=== PATIENT | female | born 1945 | race Caucasian/White ===

== ENCOUNTER 2023-06-21 20:18 | Inpatient (IN) | payer BC, MEDICARE ==
[~2023-06-21] VITALS: Ht 142.2 cm; Wt 55.8 kg
[2023-06-21] MEDS ORDERED: FENTANYL CITRATE 100 MCG/2 ML AMPUL IV ONE (20:30)
[2023-06-21] MEDS ORDERED: FENTANYL CITRATE 100 MCG/2 ML AMPUL ONE (20:32)
[2023-06-21] MEDS ORDERED: ONDANSETRON 4 MG/2 ML VIAL IV ONE (21:30)
[2023-06-21] MEDS ORDERED: HYDROMORPHONE 1 MG/1 ML DISP.SYRIN IV ONE ×2 (21:30→23:00)
[2023-06-21] MEDS ORDERED: ONDANSETRON 4 MG/2 ML VIAL ONE (21:32)
[2023-06-21] MEDS ORDERED: HYDROMORPHONE 1 MG/1 ML DISP.SYRIN ONE ×2 (21:32→22:56)
[2023-06-21 21:33] LABS: BASOPHILS % (AUTO) 0.1 % (0.0-2.0); EOSINOPHILS # (AUTO) 1.6 K/uL (0.0-0.7); EOSINOPHILS % (AUTO) 9.1 % (0.0-7.0); HEMATOCRIT 40.1 % (31.2-41.9); LYMPHOCYTES # (AUTO) 0.6 K/uL (0.8-4.8); LYMPHOCYTES % (AUTO) 3.6 % (20.5-51.5); MEAN CORPUSCULAR HEMOGLOBIN 31.2 uug (24.7-32.8); MEAN CORPUSCULAR HGB CONC 33 g/dL (32.3-35.6); MEAN CORPUSCULAR VOLUME 95.9 fL (75.5-95.3); MONOCYTES # (AUTO) 0.4 K/uL (0.1-1.30); MONOCYTES % (AUTO) 2.5 % (0.0-11.0); NEUTROPHILS % (AUTO) 84.7 % (38.5-71.5); PLATELET COUNT (AUTO) 273 K/uL (179-408); RED BLOOD CELL COUNT(AUTO) 4.18 MIL/uL (3.63-4.92); RED CELL DISTRIBUTION WIDTH 13.9 % (12.3-17.7); WHITE BLOOD COUNT (AUTO) 17.7 K/uL (3.8-11.8)
[2023-06-21 22:06] LABS: DIFFERENTIAL COMMENT 1
[2023-06-21 22:12] LABS: CALCIUM 9.2 mg/dL (8.5-10.1); CARBON DIOXIDE 22 mmol/L (21-32); CHLORIDE 101 mmol/L (98-107); CREATININE 0.8 mg/dL (0.6-1.3); GLUCOSE 124 mg/dL (74-106); POTASSIUM 3.5 mmol/L (3.5-5.1); SODIUM SERUM 136 mmol/L (136-145); UREA NITROGEN, BLOOD 11 mg/dL (7-18)
[2023-06-21 22:28] LABS: ALANINE AMINOTRANSFERASE 32 U/L (14-59); ALBUMIN 3.6 g/dL (3.4-5.0); ALKALINE PHOSPHATASE 47 U/L (50-136); ASPARTATE AMINOTRANSFERASE 24 U/L (15-37); BILIRUBIN,TOTAL 0.2 mg/dL (0.2-1.0); NT-PRO BNP 30 pg/mL (0-125); TOTAL PROTEIN, SERUM 7.1 g/dL (6.4-8.2)
[2023-06-21 22:33] LABS: BILIRUBIN,DIRECT < 0.1 mg/dL (0.0-0.2)
[2023-06-21] MEDS ORDERED: REMEDY ESSENTIAL ZINC PASTE 113 GM TP PRN (22:45)
[2023-06-21] MEDS ORDERED: ACETAMINOPHEN 325 MG TABLET PO PRN (22:45)
[2023-06-21] MEDS ORDERED: MAGNESIUM HYDROXIDE 30 ML LIQUID UDC PO PRN (22:45)
[2023-06-21] MEDS: ONDANSETRON 4 MG/2 ML VIAL IV PRN (23:06)
[2023-06-21] MEDS ORDERED: FOLI1TAB2 PO (23:35)
[2023-06-21] MEDS ORDERED: PROP15DR EACHEYE (23:35)
[2023-06-21] MEDS ORDERED: METF-494 PO (23:35)
[2023-06-21] MEDS ORDERED: MAGN400C PO (23:35)
[2023-06-21] MEDS ORDERED: ROSU20TA2 PO (23:35)
[2023-06-21] MEDS ORDERED: BIOT5000 PO (23:35)
[2023-06-21] MEDS ORDERED: VIT1CAPS44 PO (23:35)
[2023-06-21] MEDS ORDERED: CHOL500050 PO (23:35)
[2023-06-21] MEDS ORDERED: ASCO500C18 PO (23:35)
[2023-06-22] MEDS: MORPHINE SULFATE 2 MG/1 ML DISP.SYRIN IV PRN ×5 (01:09→21:34)
[2023-06-22 04:00] VITALS: BP 124/71; TEMP 98.2
[2023-06-22 07:14] LABS: BASOPHILS % (AUTO) 0.3 % (0.0-2.0); EOSINOPHILS % (AUTO) 0.3 % (0.0-7.0); HEMATOCRIT 36.5 % (31.2-41.9); HEMOGLOBIN 12.4 g/dL (10.9-14.3); LYMPHOCYTES # (AUTO) 1.3 K/uL (0.8-4.8); LYMPHOCYTES % (AUTO) 11.8 % (20.5-51.5); MEAN CORPUSCULAR HEMOGLOBIN 32.2 uug (24.7-32.8); MEAN CORPUSCULAR HGB CONC 34 g/dL (32.3-35.6); MONOCYTES # (AUTO) 1.1 K/uL (0.1-1.30); MONOCYTES % (AUTO) 9.8 % (0.0-11.0); NEUTROPHILS # (AUTO) 8.8 K/uL (1.8-8.9); NEUTROPHILS % (AUTO) 77.8 % (38.5-71.5); PLATELET COUNT (AUTO) 260 K/uL (179-408); RED BLOOD CELL COUNT(AUTO) 3.84 MIL/uL (3.63-4.92); RED CELL DISTRIBUTION WIDTH 13.9 % (12.3-17.7); WHITE BLOOD COUNT (AUTO) 11.3 K/uL (3.8-11.8)
[2023-06-22 07:26] LABS: DIFFERENTIAL COMMENT 1
[2023-06-22 07:34] LABS: CALCIUM 8.6 mg/dL (8.5-10.1); CARBON DIOXIDE 27 mmol/L (21-32); CHLORIDE 101 mmol/L (98-107); CREATININE 0.6 mg/dL (0.6-1.3); GLUCOSE 126 mg/dL (74-106); MAGNESIUM 2.1 mg/dL (1.8-2.4); PHOSPHOROUS 3.6 mg/dL (2.5-4.9); POTASSIUM 4.6 mmol/L (3.5-5.1); SODIUM SERUM 134 mmol/L (136-145); UREA NITROGEN, BLOOD 9 mg/dL (7-18)
[2023-06-22 08:00] VITALS: BP 139/76; TEMP 98.1; O2SAT 96
[2023-06-22] MEDS ORDERED: Medication Not On Formulary EA (Rosuvastatin Calcium (Crestor) 1 TAB) PO SCH (09:00)
[2023-06-22] MEDS ORDERED: Medication Not On Formulary EA (Metformin Hcl (Metformin Hcl Er) 1 TAB) PO SCH (09:00)
[2023-06-22 09:40] LABS: THYROID STIMULATING HORMONE 3.582 mIU/mL (0.358-3.740)
[2023-06-22] MEDS: METFORMIN XR 500 MG TAB.SR.24H PO SCH (09:44)
[2023-06-22 10:05] VITALS: BP 142/75; TEMP 98; O2SAT 98
[2023-06-22] MEDS: HYDROCODONE/APAP 10-325 MG TABLET PO PRN ×3 (11:16→23:44)
[2023-06-22 14:11] LABS: *BILIRUBIN,URIN NEGATIVE (NEGATIVE); *CLARITY,URINE CLEAR (CLEAR); *COLOR,URINE YELLOW (YELLOW); *KETONES,URINE TRACE (NEGATIVE); *PROTEIN,URINE NEGATIVE (NEGATIVE); *UROBILINOGEN,URINE 0.2 E.U./dl (NORMAL); LEUKOCYTE ESTERASE ,URINE 1+ (NEGATIVE); NITRITE, URINE NEGATIVE (NEGATIVE); UGLUCOSE NEGATIVE (NEGATIVE)
[2023-06-22 14:13] LABS: *BLOOD, URINE TRACE (NEGATIVE)
[2023-06-22 15:30] LABS: BACTERIA,URINE MODERATE /HPF (NONE SEEN); SQUAMOUS EPITHELIAL CELL,UR MANY /HPF (NONE SEEN); WBC,URINE 20-50 /HPF (0-3)
[2023-06-22] MEDS: CEFTRIAXONE 1 G in IV DEXTROSE 5% 50 ML IV SCH (17:17)
[2023-06-22] MEDS: ONDANSETRON 4 MG/2 ML VIAL IV PRN (17:21)
[2023-06-22 20:00] VITALS: BP 130/81; TEMP 98.1; O2SAT 94
[2023-06-22] MEDS: ATORVASTATIN 40 MG TABLET PO SCH (20:53)
[2023-06-23] VITALS: BP 135/82; TEMP 98; O2SAT 97
[2023-06-23 04:00] VITALS: BP 126/78; TEMP 98.4; O2SAT 95
[2023-06-23] MEDS: MORPHINE SULFATE 2 MG/1 ML DISP.SYRIN IV PRN ×2 (06:26→13:45)
[2023-06-23] MEDS ORDERED: CEFAZOLIN 1 G VIAL ONE (07:00)
[2023-06-23] MEDS ORDERED: LIDOCAINE-MPF 2% 5 ML VIAL ONE (07:00)
[2023-06-23] MEDS ORDERED: KETOROLAC TROMETHAMINE 30 MG INJ ONE (07:00)
[2023-06-23] MEDS ORDERED: PROPOFOL 200 MG/20 ML BOTTLE ONE (07:00)
[2023-06-23] MEDS ORDERED: VANCOMYCIN 1000 MG VIAL ONE (07:26)
[2023-06-23] MEDS: METFORMIN XR 500 MG TAB.SR.24H PO SCH (09:00)
[2023-06-23] MEDS ORDERED: FENTANYL CITRATE 100 MCG/2 ML AMPUL ONE (09:32)
[2023-06-23] MEDS ORDERED: IV D5W-0.45% NS +20 KCL 1,000 ML IV ONE (09:39)
[2023-06-23] MEDS ORDERED: MORPHINE SULFATE 4 MG/1 ML DISP.SYRIN IV PRN (10:00)
[2023-06-23] MEDS ORDERED: IV D5W-0.45% NS +20 KCL 1,000 ML IV PRN (10:00)
[2023-06-23] MEDS: ONDANSETRON 4 MG/2 ML VIAL IV PRN ×2 (11:27→17:30)
[2023-06-23 12:00] VITALS: BP 114/68; TEMP 97.4; O2SAT 97
[2023-06-23 16:00] VITALS: BP 108/59; TEMP 98.3; O2SAT 94
[2023-06-23] MEDS: CEFTRIAXONE 1 G in IV DEXTROSE 5% 50 ML IV SCH (17:09)
[2023-06-23] MEDS: HYDROCODONE/APAP 10-325 MG TABLET PO PRN ×2 (17:10→23:18)
[2023-06-23] MEDS: ATORVASTATIN 40 MG TABLET PO SCH (21:00)
[2023-06-23 23:45] VITALS: BP 106/60; TEMP 98; O2SAT 98
[2023-06-24 02:51] VITALS: BP 116/61; TEMP 98.1; O2SAT 95
[2023-06-24] MEDS: HYDROCODONE/APAP 10-325 MG TABLET PO PRN ×4 (03:21→20:38)
[2023-06-24 07:15] LABS: BASOPHILS % (AUTO) 0.5 % (0.0-2.0); EOSINOPHILS # (AUTO) 0.1 K/uL (0.0-0.7); EOSINOPHILS % (AUTO) 1.6 % (0.0-7.0); HEMATOCRIT 26.7 % (31.2-41.9); HEMOGLOBIN 9.2 g/dL (10.9-14.3); LYMPHOCYTES # (AUTO) 1.4 K/uL (0.8-4.8); LYMPHOCYTES % (AUTO) 19.8 % (20.5-51.5); MEAN CORPUSCULAR HEMOGLOBIN 32.6 uug (24.7-32.8); MEAN CORPUSCULAR HGB CONC 34 g/dL (32.3-35.6); MEAN CORPUSCULAR VOLUME 94.9 fL (75.5-95.3); MONOCYTES # (AUTO) 0.8 K/uL (0.1-1.30); MONOCYTES % (AUTO) 11.2 % (0.0-11.0); NEUTROPHILS # (AUTO) 4.7 K/uL (1.8-8.9); NEUTROPHILS % (AUTO) 66.9 % (38.5-71.5); PLATELET COUNT (AUTO) 190 K/uL (179-408); RED BLOOD CELL COUNT(AUTO) 2.82 MIL/uL (3.63-4.92); RED CELL DISTRIBUTION WIDTH 13.6 % (12.3-17.7); WHITE BLOOD COUNT (AUTO) 7.1 K/uL (3.8-11.8)
[2023-06-24 07:22] LABS: CALCIUM 7.2 mg/dL (8.5-10.1); CARBON DIOXIDE 26 mmol/L (21-32); CHLORIDE 100 mmol/L (98-107); CREATININE 0.5 mg/dL (0.6-1.3); GLUCOSE 146 mg/dL (74-106); MAGNESIUM 2.1 mg/dL (1.8-2.4); PHOSPHOROUS 1.9 mg/dL (2.5-4.9); POTASSIUM 4.1 mmol/L (3.5-5.1); SODIUM SERUM 129 mmol/L (136-145); UREA NITROGEN, BLOOD 11 mg/dL (7-18)
[2023-06-24 07:43] LABS: DIFFERENTIAL COMMENT 1
[2023-06-24 08:00] VITALS: BP 107/58; TEMP 98.1; O2SAT 95
[2023-06-24] MEDS: ONDANSETRON 4 MG/2 ML VIAL IV PRN (08:44)
[2023-06-24] MEDS: METFORMIN XR 500 MG TAB.SR.24H PO SCH (08:44)
[2023-06-24 12:00] VITALS: BP 133/64; TEMP 98; O2SAT 97
[2023-06-24] MEDS: MORPHINE SULFATE 2 MG/1 ML DISP.SYRIN IV PRN ×2 (12:26→23:49)
[2023-06-24] MEDS ORDERED: IV NS 1000 ML 1,000 ML IV ONE (13:50)
[2023-06-24] MEDS ORDERED: NEUTRA PHOS PACKET PO ONE (15:45)
[2023-06-24 16:09] VITALS: BP 129/73; TEMP 97.8; O2SAT 99
[2023-06-24] MEDS: CEFTRIAXONE 1 G in IV DEXTROSE 5% 50 ML IV SCH (16:36)
[2023-06-24 20:15] VITALS: BP 126/68; TEMP 99.7; O2SAT 98
[2023-06-24] MEDS: ATORVASTATIN 40 MG TABLET PO SCH (20:37)
[2023-06-24 23:45] VITALS: BP 121/68; TEMP 98.8; O2SAT 96
[2023-06-25 03:28] VITALS: BP 112/66; TEMP 99.2; O2SAT 96
[2023-06-25] MEDS: HYDROCODONE/APAP 10-325 MG TABLET PO PRN ×3 (03:50→14:38)
[2023-06-25 06:42] VITALS: BP 118/68
[2023-06-25 07:01] LABS: BASOPHILS # (AUTO) 0.1 K/UL (0.0-0.2); BASOPHILS % (AUTO) 0.6 % (0.0-2.0); EOSINOPHILS # (AUTO) 0.2 K/uL (0.0-0.7); EOSINOPHILS % (AUTO) 2.2 % (0.0-7.0); HEMOGLOBIN 8.8 g/dL (10.9-14.3); LYMPHOCYTES % (AUTO) 12.8 % (20.5-51.5); MEAN CORPUSCULAR HGB CONC 34 g/dL (32.3-35.6); MEAN CORPUSCULAR VOLUME 94.9 fL (75.5-95.3); NEUTROPHILS # (AUTO) 5.8 K/uL (1.8-8.9); NEUTROPHILS % (AUTO) 72.4 % (38.5-71.5); PLATELET COUNT (AUTO) 192 K/uL (179-408); RED BLOOD CELL COUNT(AUTO) 2.74 MIL/uL (3.63-4.92); RED CELL DISTRIBUTION WIDTH 13.9 % (12.3-17.7)
[2023-06-25 07:15] LABS: CALCIUM 7.2 mg/dL (8.5-10.1); CARBON DIOXIDE 24 mmol/L (21-32); CHLORIDE 104 mmol/L (98-107); CREATININE 0.4 mg/dL (0.6-1.3); GLUCOSE 128 mg/dL (74-106); MAGNESIUM 2.2 mg/dL (1.8-2.4); PHOSPHOROUS 1.7 mg/dL (2.5-4.9); POTASSIUM 4.1 mmol/L (3.5-5.1); SODIUM SERUM 133 mmol/L (136-145); UREA NITROGEN, BLOOD 6 mg/dL (7-18)
[2023-06-25 07:38] LABS: DIFFERENTIAL COMMENT 1
[2023-06-25 08:00] VITALS: BP 110/68; TEMP 98.1
[2023-06-25] MEDS: METFORMIN XR 500 MG TAB.SR.24H PO SCH (09:28)
[2023-06-25 11:30] VITALS: BP 131/71; TEMP 97.4; O2SAT 98
[2023-06-25] MEDS ORDERED: NEUTRA PHOS PACKET PO ONE (16:00)
[2023-06-25] MEDS ORDERED: ATOR40TA PO (16:48)
[2023-06-26] MEDS ORDERED: CHOL-35 PO (11:31)
== END 2023-06-25 16:09 | DRG 481 ==
LOC: ER 20:21 → MEDSURG3 22:50
PROVIDERS: ADMIT Nurse Practitioner Acute Care; ATTEND Internal Medicine
PROC: 0QS606Z Reposition Right Upper Femur with Intramedullary Internal Fixation Device, Open Approach (ICD-10-PCS; principal; 2023-06-23)
PROC: 0QS606Z Reposition Right Upper Femur with Intramedullary Internal Fixation Device, Open Approach (ICD-10-PCS; 2023-06-23)
DX: S72.21XA Displaced subtrochanteric fracture of right femur, initial encounter for closed fracture (principal); D62 Acute posthemorrhagic anemia; D68.59 Other primary thrombophilia; N39.0 Urinary tract infection, site not specified; E87.1 Hypo-osmolality and hyponatremia; W01.0XXA Fall on same level from slipping, tripping and stumbling without subsequent striking against object, initial encounter; Y93.E9 Activity, other interior property and clothing maintenance; Y92.89 Other specified places as the place of occurrence of the external cause; E11.9 Type 2 diabetes mellitus without complications; Z85.3 Personal history of malignant neoplasm of breast; Z90.12 Acquired absence of left breast and nipple; K64.9 Unspecified hemorrhoids; I25.10 Atherosclerotic heart disease of native coronary artery without angina pectoris; I10 Essential (primary) hypertension; E66.3 Overweight; K59.00 Constipation, unspecified; Z79.84 Long term (current) use of oral hypoglycemic drugs; M19.90 Unspecified osteoarthritis, unspecified site; R05.9 Cough, unspecified; R09.89 Other specified symptoms and signs involving the circulatory and respiratory systems; E78.5 Hyperlipidemia, unspecified
CPT/HCPCS: 36415; 71045; 73502; 73503; 73551; 83735; 84100; 84443; 84484; 85025; 85730; 86850; 86900; 86901; 93005; 93307; A4649; A4663; C1713; G0378; J0690; J0696; J1170; J1885; J2270; J2405; J3010; J3370; J3490; J7040

== ENCOUNTER 2023-06-25 15:37 | Inpatient (IN) | payer MEDICARE ==
[~2023-06-25] VITALS: Ht 167.6 cm; Wt 55.8 kg
[~2023-06-25 15:37] MED LIST: ASCO500C18 PO; BIOT5000 PO; CHOL500050 PO; FOLI1TAB2 PO; MAGN400C PO; METF-494 PO; PROP15DR EACHEYE; ROSU20TA2 PO; VIT1CAPS44 PO
[2023-06-25] MEDS ORDERED: ATOR40TA PO (16:48)
[2023-06-25 16:50] VITALS: BP 112/63; TEMP 98.3; O2SAT 98
[2023-06-25] MEDS: HYDROCODONE/APAP 10-325 MG TABLET PO PRN ×2 (18:27→23:03)
[2023-06-25] MEDS ORDERED: MORPHINE SULFATE 2 MG/1 ML DISP.SYRIN IV PRN (18:30)
[2023-06-25] MEDS ORDERED: MAGNESIUM HYDROXIDE 30 ML LIQUID UDC PO PRN (18:45)
[2023-06-25] MEDS ORDERED: ACETAMINOPHEN 325 MG TABLET PO PRN (18:45)
[2023-06-25] MEDS ORDERED: REMEDY ESSENTIAL ZINC PASTE 113 GM TP PRN (18:45)
[2023-06-25 20:23] VITALS: BP 112/66; TEMP 98.8; O2SAT 96
[2023-06-25] MEDS: ATORVASTATIN 40 MG TABLET PO SCH (20:54)
[2023-06-26 04:42] VITALS: BP 111/72; TEMP 98.6; O2SAT 96
[2023-06-26] MEDS: HYDROCODONE/APAP 10-325 MG TABLET PO PRN ×4 (06:42→20:45)
[2023-06-26 06:51] LABS: BASOPHILS % (AUTO) 0.6 % (0.0-2.0); EOSINOPHILS # (AUTO) 0.3 K/uL (0.0-0.7); EOSINOPHILS % (AUTO) 3.6 % (0.0-7.0); HEMATOCRIT 24.8 % (31.2-41.9); HEMOGLOBIN 8.6 g/dL (10.9-14.3); LYMPHOCYTES # (AUTO) 1.6 K/uL (0.8-4.8); LYMPHOCYTES % (AUTO) 23.4 % (20.5-51.5); MEAN CORPUSCULAR HEMOGLOBIN 32.7 uug (24.7-32.8); MEAN CORPUSCULAR HGB CONC 35 g/dL (32.3-35.6); MEAN CORPUSCULAR VOLUME 94.6 fL (75.5-95.3); MONOCYTES # (AUTO) 0.8 K/uL (0.1-1.30); NEUTROPHILS # (AUTO) 4.2 K/uL (1.8-8.9); NEUTROPHILS % (AUTO) 60.4 % (38.5-71.5); PLATELET COUNT (AUTO) 225 K/uL (179-408); RED BLOOD CELL COUNT(AUTO) 2.62 MIL/uL (3.63-4.92); RED CELL DISTRIBUTION WIDTH 13.7 % (12.3-17.7); WHITE BLOOD COUNT (AUTO) 6.9 K/uL (3.8-11.8)
[2023-06-26 07:11] LABS: DIFFERENTIAL COMMENT 1
[2023-06-26 07:42] LABS: CALCIUM 7.5 mg/dL (8.5-10.1); CARBON DIOXIDE 26 mmol/L (21-32); CHLORIDE 104 mmol/L (98-107); CREATININE 0.4 mg/dL (0.6-1.3); GLUCOSE 112 mg/dL (74-106); HDL CHOLESTEROL 43 mg/dL (40-60); MAGNESIUM 2.1 mg/dL (1.8-2.4); POTASSIUM 4.5 mmol/L (3.5-5.1); SODIUM SERUM 136 mmol/L (136-145); TRIGLYCERIDES 72 MG/DL (30-150); UREA NITROGEN, BLOOD 8 mg/dL (7-18)
[2023-06-26 07:45] VITALS: BP 124/72; TEMP 98.2; O2SAT 96
[2023-06-26 08:02] LABS: CHOLESTEROL < 50 mg/dL (<200)
[2023-06-26] MEDS: METFORMIN XR 500 MG TAB.SR.24H PO SCH (08:52)
[2023-06-26] MEDS ORDERED: Medication Not On Formulary EA (Metformin Hcl (Metformin Hcl Er) 1 TAB) PO SCH (09:00)
[2023-06-26] MEDS ORDERED: CHOL-35 PO (11:31)
[2023-06-26] MEDS: ONDANSETRON 4 MG/2 ML VIAL IV PRN ×2 (12:48→21:18)
[2023-06-26] MEDS ORDERED: NEUTRA PHOS PACKET PO ONE (16:00)
[2023-06-26 16:45] VITALS: BP 135/76; TEMP 98.2; O2SAT 95
[2023-06-26] MEDS: POLYVINYL ALCOHOL OPHT DROPS 15 ML BOTTLE EACHEYE SCH (16:49)
[2023-06-26] MEDS: ATORVASTATIN 40 MG TABLET PO SCH (20:45)
[2023-06-26 20:54] VITALS: BP 145/76; TEMP 98.4; O2SAT 99
[2023-06-27 04:25] VITALS: BP 126/72; TEMP 98.5; O2SAT 97
[2023-06-27] MEDS: HYDROCODONE/APAP 10-325 MG TABLET PO PRN ×5 (05:37→19:54)
[2023-06-27 07:53] VITALS: BP 112/71; TEMP 98.5; O2SAT 97
[2023-06-27] MEDS: CHOLECALCIFEROL 1,000 UNIT TABLET PO SCH (09:21)
[2023-06-27] MEDS: MAGNESIUM OXIDE 400 MG TABLET PO SCH (09:21)
[2023-06-27] MEDS: METFORMIN XR 500 MG TAB.SR.24H PO SCH (09:21)
[2023-06-27] MEDS: POLYVINYL ALCOHOL OPHT DROPS 15 ML BOTTLE EACHEYE SCH ×2 (09:21→17:00)
[2023-06-27] MEDS ORDERED: BISACODYL 10 MG SUPP.RECT RC ONE (13:15)
[2023-06-27] MEDS: ATORVASTATIN 40 MG TABLET PO SCH (20:33)
[2023-06-27 21:34] VITALS: BP 130/71; TEMP 98.4; O2SAT 99
[2023-06-28 05:39] VITALS: BP 135/56; TEMP 98.4; O2SAT 96
[2023-06-28] MEDS: ACETAMINOPHEN 325 MG TABLET PO PRN (06:32)
[2023-06-28 06:37] LABS: BASOPHILS % (AUTO) 0.5 % (0.0-2.0); EOSINOPHILS # (AUTO) 0.2 K/uL (0.0-0.7); EOSINOPHILS % (AUTO) 2.7 % (0.0-7.0); HEMATOCRIT 27.7 % (31.2-41.9); HEMOGLOBIN 9.6 g/dL (10.9-14.3); LYMPHOCYTES # (AUTO) 1.6 K/uL (0.8-4.8); LYMPHOCYTES % (AUTO) 17.6 % (20.5-51.5); MEAN CORPUSCULAR HEMOGLOBIN 32.6 uug (24.7-32.8); MEAN CORPUSCULAR HGB CONC 35 g/dL (32.3-35.6); MEAN CORPUSCULAR VOLUME 94.2 fL (75.5-95.3); MONOCYTES # (AUTO) 1.1 K/uL (0.1-1.30); MONOCYTES % (AUTO) 11.7 % (0.0-11.0); NEUTROPHILS # (AUTO) 6.1 K/uL (1.8-8.9); NEUTROPHILS % (AUTO) 67.5 % (38.5-71.5); PLATELET COUNT (AUTO) 343 K/uL (179-408); RED BLOOD CELL COUNT(AUTO) 2.94 MIL/uL (3.63-4.92); RED CELL DISTRIBUTION WIDTH 13.7 % (12.3-17.7)
[2023-06-28 06:53] LABS: DIFFERENTIAL COMMENT 1
[2023-06-28 07:32] LABS: ALBUMIN 2.3 g/dL (3.4-5.0); BILIRUBIN,TOTAL 0.4 mg/dL (0.2-1.0); CALCIUM 8.4 mg/dL (8.5-10.1); CREATININE 0.6 mg/dL (0.6-1.3); MAGNESIUM 2.1 mg/dL (1.8-2.4); PHOSPHOROUS 2.7 mg/dL (2.5-4.9); POTASSIUM 4.3 mmol/L (3.5-5.1); TOTAL PROTEIN, SERUM 6.1 g/dL (6.4-8.2)
[2023-06-28] MEDS: CHOLECALCIFEROL 1,000 UNIT TABLET PO SCH (08:08)
[2023-06-28] MEDS: POLYVINYL ALCOHOL OPHT DROPS 15 ML BOTTLE EACHEYE SCH ×2 (08:08→16:12)
[2023-06-28] MEDS: MAGNESIUM OXIDE 400 MG TABLET PO SCH (08:08)
[2023-06-28] MEDS: METFORMIN XR 500 MG TAB.SR.24H PO SCH (08:26)
[2023-06-28 08:32] VITALS: BP 122/66; TEMP 98.4; O2SAT 98
[2023-06-28] MEDS: HYDROCODONE/APAP 10-325 MG TABLET PO PRN ×3 (09:23→20:13)
[2023-06-28] MEDS: ONDANSETRON ODT 4 MG TAB.RAPDIS SL PRN (12:29)
[2023-06-28 17:08] VITALS: BP 125/64; TEMP 98.4; O2SAT 97
[2023-06-28 20:10] VITALS: BP 128/79
[2023-06-28] MEDS: ATORVASTATIN 40 MG TABLET PO SCH (21:12)
[2023-06-28 21:19] VITALS: TEMP 98.7
[2023-06-29] MEDS: HYDROCODONE/APAP 10-325 MG TABLET PO PRN ×4 (04:50→20:06)
[2023-06-29 06:26] LABS: BASOPHILS % (AUTO) 0.3 % (0.0-2.0); EOSINOPHILS # (AUTO) 0.2 K/uL (0.0-0.7); EOSINOPHILS % (AUTO) 2.5 % (0.0-7.0); HEMATOCRIT 26.3 % (31.2-41.9); LYMPHOCYTES # (AUTO) 1.5 K/uL (0.8-4.8); LYMPHOCYTES % (AUTO) 14.8 % (20.5-51.5); MEAN CORPUSCULAR HEMOGLOBIN 32.4 uug (24.7-32.8); MEAN CORPUSCULAR HGB CONC 34 g/dL (32.3-35.6); MEAN CORPUSCULAR VOLUME 94.5 fL (75.5-95.3); MONOCYTES # (AUTO) 1.1 K/uL (0.1-1.30); MONOCYTES % (AUTO) 11.3 % (0.0-11.0); NEUTROPHILS % (AUTO) 71.1 % (38.5-71.5); PLATELET COUNT (AUTO) 368 K/uL (179-408); RED BLOOD CELL COUNT(AUTO) 2.78 MIL/uL (3.63-4.92); RED CELL DISTRIBUTION WIDTH 13.7 % (12.3-17.7); WHITE BLOOD COUNT (AUTO) 9.9 K/uL (3.8-11.8)
[2023-06-29 06:51] LABS: ALANINE AMINOTRANSFERASE 30 U/L (14-59); ALBUMIN 2.2 g/dL (3.4-5.0); ALKALINE PHOSPHATASE 56 U/L (50-136); ASPARTATE AMINOTRANSFERASE 22 U/L (15-37); BILIRUBIN,TOTAL 0.6 mg/dL (0.2-1.0); CALCIUM 9.3 mg/dL (8.5-10.1); CARBON DIOXIDE 29 mmol/L (21-32); CHLORIDE 99 mmol/L (98-107); CREATININE 0.5 mg/dL (0.6-1.3); GLUCOSE 129 mg/dL (74-106); SODIUM SERUM 133 mmol/L (136-145); TOTAL PROTEIN, SERUM 5.9 g/dL (6.4-8.2); UREA NITROGEN, BLOOD 12 mg/dL (7-18)
[2023-06-29 07:33] LABS: DIFFERENTIAL COMMENT 1
[2023-06-29 07:52] VITALS: BP 131/73; TEMP 98.1; O2SAT 98
[2023-06-29] MEDS: METFORMIN XR 500 MG TAB.SR.24H PO SCH (08:51)
[2023-06-29] MEDS: POLYVINYL ALCOHOL OPHT DROPS 15 ML BOTTLE EACHEYE SCH ×2 (08:51→16:35)
[2023-06-29] MEDS: CHOLECALCIFEROL 1,000 UNIT TABLET PO SCH (08:51)
[2023-06-29] MEDS: MAGNESIUM OXIDE 400 MG TABLET PO SCH (08:51)
[2023-06-29 16:00] VITALS: BP 125/65; TEMP 97.7; O2SAT 98
[2023-06-29 18:16] VITALS: BP 150/73; TEMP 97; O2SAT 97
[2023-06-29 20:00] VITALS: BP 120/73; TEMP 98.1; O2SAT 98
[2023-06-29] MEDS: ATORVASTATIN 40 MG TABLET PO SCH (20:05)
[2023-06-30 04:00] VITALS: BP 141/84; TEMP 98.1; O2SAT 96
[2023-06-30] MEDS: ONDANSETRON ODT 4 MG TAB.RAPDIS SL PRN (04:26)
[2023-06-30] MEDS: HYDROCODONE/APAP 10-325 MG TABLET PO PRN ×3 (04:26→20:04)
[2023-06-30 06:55] LABS: BASOPHILS # (AUTO) 0.1 K/UL (0.0-0.2); BASOPHILS % (AUTO) 0.5 % (0.0-2.0); EOSINOPHILS # (AUTO) 0.3 K/uL (0.0-0.7); EOSINOPHILS % (AUTO) 2.7 % (0.0-7.0); HEMATOCRIT 26.7 % (31.2-41.9); HEMOGLOBIN 9.1 g/dL (10.9-14.3); LYMPHOCYTES # (AUTO) 1.6 K/uL (0.8-4.8); LYMPHOCYTES % (AUTO) 17.1 % (20.5-51.5); MEAN CORPUSCULAR HEMOGLOBIN 32.4 uug (24.7-32.8); MEAN CORPUSCULAR HGB CONC 34 g/dL (32.3-35.6); MEAN CORPUSCULAR VOLUME 94.7 fL (75.5-95.3); MONOCYTES # (AUTO) 1.1 K/uL (0.1-1.30); MONOCYTES % (AUTO) 11.6 % (0.0-11.0); NEUTROPHILS # (AUTO) 6.6 K/uL (1.8-8.9); NEUTROPHILS % (AUTO) 68.1 % (38.5-71.5); PLATELET COUNT (AUTO) 406 K/uL (179-408); RED BLOOD CELL COUNT(AUTO) 2.82 MIL/uL (3.63-4.92); RED CELL DISTRIBUTION WIDTH 13.7 % (12.3-17.7); WHITE BLOOD COUNT (AUTO) 9.7 K/uL (3.8-11.8)
[2023-06-30 07:21] LABS: ALANINE AMINOTRANSFERASE 32 U/L (14-59); ALBUMIN 2.3 g/dL (3.4-5.0); ALKALINE PHOSPHATASE 61 U/L (50-136); ASPARTATE AMINOTRANSFERASE 22 U/L (15-37); BILIRUBIN,TOTAL 0.7 mg/dL (0.2-1.0); CALCIUM 9.4 mg/dL (8.5-10.1); CARBON DIOXIDE 28 mmol/L (21-32); CHLORIDE 99 mmol/L (98-107); CREATININE 0.5 mg/dL (0.6-1.3); GLUCOSE 120 mg/dL (74-106); POTASSIUM 4.1 mmol/L (3.5-5.1); SODIUM SERUM 132 mmol/L (136-145); TOTAL PROTEIN, SERUM 5.8 g/dL (6.4-8.2); UREA NITROGEN, BLOOD 14 mg/dL (7-18)
[2023-06-30 07:22] LABS: DIFFERENTIAL COMMENT 1
[2023-06-30 08:13] VITALS: BP 113/57; TEMP 97.8; O2SAT 96
[2023-06-30] MEDS: METFORMIN XR 500 MG TAB.SR.24H PO SCH (08:27)
[2023-06-30] MEDS: CHOLECALCIFEROL 1,000 UNIT TABLET PO SCH (08:27)
[2023-06-30] MEDS: MAGNESIUM OXIDE 400 MG TABLET PO SCH (08:27)
[2023-06-30] MEDS: ACETAMINOPHEN 325 MG TABLET PO PRN (08:27)
[2023-06-30] MEDS: POLYVINYL ALCOHOL OPHT DROPS 15 ML BOTTLE EACHEYE SCH ×2 (08:28→18:15)
[2023-06-30 17:16] VITALS: BP 118/68; TEMP 97.7; O2SAT 95
[2023-06-30] MEDS: PROTEIN SUPPLEMENT (PROSTAT) 30 ML LIQUID PO SCH (18:15)
[2023-06-30 20:00] VITALS: BP 132/79; TEMP 98.2; O2SAT 98
[2023-06-30] MEDS: ATORVASTATIN 40 MG TABLET PO SCH (20:04)
[2023-07-01] MEDS: HYDROCODONE/APAP 5-325MG TABLET PO PRN ×4 (02:23→20:34)
[2023-07-01 04:00] VITALS: BP 128/70; TEMP 98; O2SAT 99
[2023-07-01 07:40] VITALS: BP 125/73; TEMP 98.2; O2SAT 98
[2023-07-01] MEDS: METFORMIN XR 500 MG TAB.SR.24H PO SCH (08:22)
[2023-07-01] MEDS: MAGNESIUM OXIDE 400 MG TABLET PO SCH (08:22)
[2023-07-01] MEDS: PROTEIN SUPPLEMENT (PROSTAT) 30 ML LIQUID PO SCH ×2 (08:23→16:28)
[2023-07-01] MEDS: POLYVINYL ALCOHOL OPHT DROPS 15 ML BOTTLE EACHEYE SCH ×2 (08:23→16:28)
[2023-07-01] MEDS: CHOLECALCIFEROL 1,000 UNIT TABLET PO SCH (08:23)
[2023-07-01] MEDS: ONDANSETRON ODT 4 MG TAB.RAPDIS SL PRN (08:51)
[2023-07-01 15:43] VITALS: BP 120/65; TEMP 98.3; O2SAT 97
[2023-07-01 20:07] VITALS: BP 117/65; TEMP 98.2; O2SAT 98
[2023-07-02] MEDS: HYDROCODONE/APAP 5-325MG TABLET PO PRN ×3 (02:21→20:20)
[2023-07-02 04:34] VITALS: BP 113/65; TEMP 98.2; O2SAT 98
[2023-07-02 07:34] VITALS: BP 121/68; TEMP 98.2; O2SAT 98
[2023-07-02] MEDS: POLYVINYL ALCOHOL OPHT DROPS 15 ML BOTTLE EACHEYE SCH ×2 (08:40→17:14)
[2023-07-02] MEDS: MAGNESIUM OXIDE 400 MG TABLET PO SCH (08:40)
[2023-07-02] MEDS: CHOLECALCIFEROL 1,000 UNIT TABLET PO SCH (08:40)
[2023-07-02] MEDS: METFORMIN XR 500 MG TAB.SR.24H PO SCH (08:40)
[2023-07-02] MEDS: PROTEIN SUPPLEMENT (PROSTAT) 30 ML LIQUID PO SCH ×2 (08:41→17:15)
[2023-07-02] MEDS: ACETAMINOPHEN 325 MG TABLET PO PRN ×2 (12:15→21:49)
[2023-07-02 15:34] VITALS: BP 105/60; TEMP 97.5; O2SAT 98
[2023-07-02 20:00] VITALS: BP 101/61; TEMP 98.2; O2SAT 97
[2023-07-03 04:00] VITALS: BP 114/63; TEMP 98; O2SAT 97
[2023-07-03] MEDS: METFORMIN XR 500 MG TAB.SR.24H PO SCH (09:28)
[2023-07-03] MEDS: HYDROCODONE/APAP 5-325MG TABLET PO PRN ×2 (09:29→21:02)
[2023-07-03] MEDS: POLYVINYL ALCOHOL OPHT DROPS 15 ML BOTTLE EACHEYE SCH ×2 (09:29→16:08)
[2023-07-03] MEDS: MAGNESIUM OXIDE 400 MG TABLET PO SCH (09:29)
[2023-07-03] MEDS: PROTEIN SUPPLEMENT (PROSTAT) 30 ML LIQUID PO SCH ×2 (09:30→16:09)
[2023-07-03] MEDS: CHOLECALCIFEROL 1,000 UNIT TABLET PO SCH (09:30)
[2023-07-03] MEDS: ACETAMINOPHEN 325 MG TABLET PO PRN (11:48)
[2023-07-03 16:07] VITALS: BP 105/66; TEMP 98.4; O2SAT 98
[2023-07-03 20:17] VITALS: BP 128/72; TEMP 98.4; O2SAT 98
[2023-07-04] MEDS: ACETAMINOPHEN 325 MG TABLET PO PRN ×3 (03:17→22:27)
[2023-07-04 04:15] VITALS: BP 115/75; TEMP 98.2; O2SAT 97
[2023-07-04 08:00] VITALS: BP 124/73; TEMP 98.7; O2SAT 99
[2023-07-04] MEDS: POLYVINYL ALCOHOL OPHT DROPS 15 ML BOTTLE EACHEYE SCH ×2 (08:47→16:43)
[2023-07-04] MEDS: CHOLECALCIFEROL 1,000 UNIT TABLET PO SCH (08:47)
[2023-07-04] MEDS: METFORMIN XR 500 MG TAB.SR.24H PO SCH (08:47)
[2023-07-04] MEDS: MAGNESIUM OXIDE 400 MG TABLET PO SCH (08:47)
[2023-07-04] MEDS: PROTEIN SUPPLEMENT (PROSTAT) 30 ML LIQUID PO SCH ×2 (08:59→16:43)
[2023-07-04] MEDS: HYDROCODONE/APAP 5-325MG TABLET PO PRN ×2 (09:56→20:25)
[2023-07-04 16:43] VITALS: BP 107/61; TEMP 98.2; O2SAT 94
[2023-07-04 21:13] VITALS: BP 112/69; TEMP 98; O2SAT 99
[2023-07-05] MEDS: ACETAMINOPHEN 325 MG TABLET PO PRN ×4 (04:32→23:20)
[2023-07-05 05:40] VITALS: BP 125/74; TEMP 97.8; O2SAT 99
[2023-07-05 08:05] VITALS: BP 134/76; TEMP 98.3; O2SAT 99
[2023-07-05] MEDS: CHOLECALCIFEROL 1,000 UNIT TABLET PO SCH (08:15)
[2023-07-05] MEDS: MAGNESIUM OXIDE 400 MG TABLET PO SCH (08:15)
[2023-07-05] MEDS: POLYVINYL ALCOHOL OPHT DROPS 15 ML BOTTLE EACHEYE SCH ×2 (08:15→16:23)
[2023-07-05] MEDS: METFORMIN XR 500 MG TAB.SR.24H PO SCH (08:15)
[2023-07-05] MEDS: PROTEIN SUPPLEMENT (PROSTAT) 30 ML LIQUID PO SCH ×2 (08:48→16:24)
[2023-07-05] MEDS: HYDROCODONE/APAP 5-325MG TABLET PO PRN (14:33)
[2023-07-05 16:00] VITALS: BP 130/72; TEMP 98; O2SAT 98
[2023-07-05 20:00] VITALS: BP 131/66; TEMP 98.4; O2SAT 99
[2023-07-06] MEDS: HYDROCODONE/APAP 5-325MG TABLET PO PRN ×2 (01:47→15:54)
[2023-07-06 07:51] VITALS: BP 120/75; TEMP 98.4; O2SAT 97
[2023-07-06] MEDS: METFORMIN XR 500 MG TAB.SR.24H PO SCH (08:18)
[2023-07-06] MEDS: MAGNESIUM OXIDE 400 MG TABLET PO SCH (08:18)
[2023-07-06] MEDS: POLYVINYL ALCOHOL OPHT DROPS 15 ML BOTTLE EACHEYE SCH ×2 (08:18→16:14)
[2023-07-06] MEDS: CHOLECALCIFEROL 1,000 UNIT TABLET PO SCH (08:18)
[2023-07-06] MEDS: PROTEIN SUPPLEMENT (PROSTAT) 30 ML LIQUID PO SCH ×2 (09:00→16:14)
[2023-07-06] MEDS: ACETAMINOPHEN 325 MG TABLET PO PRN ×2 (12:03→23:49)
[2023-07-06 16:00] VITALS: BP 112/64; TEMP 98; O2SAT 100
[2023-07-06 20:00] VITALS: BP 119/70; TEMP 98.5; O2SAT 98
[2023-07-07] MEDS: HYDROCODONE/APAP 5-325MG TABLET PO PRN ×4 (02:12→22:51)
[2023-07-07 03:59] VITALS: BP 116/65; TEMP 97.7; O2SAT 98
[2023-07-07 07:59] VITALS: BP 125/70; TEMP 98.1; O2SAT 99
[2023-07-07] MEDS: MAGNESIUM OXIDE 400 MG TABLET PO SCH (08:09)
[2023-07-07] MEDS: METFORMIN XR 500 MG TAB.SR.24H PO SCH (08:09)
[2023-07-07] MEDS: POLYVINYL ALCOHOL OPHT DROPS 15 ML BOTTLE EACHEYE SCH ×2 (08:09→16:47)
[2023-07-07] MEDS: CHOLECALCIFEROL 1,000 UNIT TABLET PO SCH (08:09)
[2023-07-07] MEDS: PROTEIN SUPPLEMENT (PROSTAT) 30 ML LIQUID PO SCH ×2 (08:11→16:47)
[2023-07-07] MEDS: ACETAMINOPHEN 325 MG TABLET PO PRN ×2 (11:30→19:47)
[2023-07-07 16:08] VITALS: BP 109/70; TEMP 97.8; O2SAT 98
[2023-07-07 20:25] VITALS: BP 113/68; TEMP 98.1; O2SAT 97
[2023-07-08] MEDS: ACETAMINOPHEN 325 MG TABLET PO PRN (03:12)
[2023-07-08 04:26] VITALS: BP 127/77; TEMP 97.7; O2SAT 98
[2023-07-08 08:00] VITALS: BP 129/75; TEMP 97.8; O2SAT 9; O2SAT 99
[2023-07-08] MEDS: HYDROCODONE/APAP 5-325MG TABLET PO PRN ×2 (09:39→18:50)
[2023-07-08] MEDS: METFORMIN XR 500 MG TAB.SR.24H PO SCH (09:39)
[2023-07-08] MEDS: MAGNESIUM OXIDE 400 MG TABLET PO SCH (09:39)
[2023-07-08] MEDS: POLYVINYL ALCOHOL OPHT DROPS 15 ML BOTTLE EACHEYE SCH ×2 (09:39→18:49)
[2023-07-08] MEDS: CHOLECALCIFEROL 1,000 UNIT TABLET PO SCH (09:39)
[2023-07-08] MEDS: PROTEIN SUPPLEMENT (PROSTAT) 30 ML LIQUID PO SCH ×2 (09:42→18:51)
[2023-07-08] MEDS ORDERED: IBUPROFEN 400 MG TABLET PO PRN ×2 (12:45)
[2023-07-08 15:06] VITALS: BP 100/58; TEMP 98; O2SAT 98
[2023-07-08] MEDS: IBUPROFEN 400 MG TABLET PO SCH (18:49)
[2023-07-08 20:00] VITALS: BP 106/62; TEMP 98.7; O2SAT 98
[2023-07-09] MEDS: ACETAMINOPHEN 325 MG TABLET PO PRN ×2 (01:57→10:01)
[2023-07-09 04:00] VITALS: BP 127/68; TEMP 98.7; O2SAT 96
[2023-07-09] MEDS: HYDROCODONE/APAP 5-325MG TABLET PO PRN (04:22)
[2023-07-09 07:37] VITALS: BP 129/76; TEMP 98.8; O2SAT 97
[2023-07-09] MEDS: CHOLECALCIFEROL 1,000 UNIT TABLET PO SCH (08:20)
[2023-07-09] MEDS: IBUPROFEN 400 MG TABLET PO SCH ×3 (08:20→16:33)
[2023-07-09] MEDS: POLYVINYL ALCOHOL OPHT DROPS 15 ML BOTTLE EACHEYE SCH ×2 (08:20→16:33)
[2023-07-09] MEDS: MAGNESIUM OXIDE 400 MG TABLET PO SCH (08:20)
[2023-07-09] MEDS: METFORMIN XR 500 MG TAB.SR.24H PO SCH (08:20)
[2023-07-09] MEDS: PROTEIN SUPPLEMENT (PROSTAT) 30 ML LIQUID PO SCH ×2 (08:56→16:33)
[2023-07-09] MEDS ORDERED: ASPIRIN 81 MG TAB.CHEW PO SCH (09:00)
[2023-07-09 15:30] VITALS: BP 128/62; TEMP 97.8; O2SAT 98
== END 2023-07-09 18:04 | disposition home health service (06) | DRG 560 ==
PROVIDERS: ADMIT Physical Medicine & Rehabilitation Pain Medicine; ATTEND Physical Medicine & Rehabilitation Pain Medicine
DX: S72.21XD Displaced subtrochanteric fracture of right femur, subsequent encounter for closed fracture with routine healing (principal); D62 Acute posthemorrhagic anemia; D68.59 Other primary thrombophilia; N39.0 Urinary tract infection, site not specified; E87.1 Hypo-osmolality and hyponatremia; W18.30XD Fall on same level, unspecified, subsequent encounter; E11.9 Type 2 diabetes mellitus without complications; E78.5 Hyperlipidemia, unspecified; I10 Essential (primary) hypertension; M19.90 Unspecified osteoarthritis, unspecified site; Z85.3 Personal history of malignant neoplasm of breast; E83.39 Other disorders of phosphorus metabolism; I25.10 Atherosclerotic heart disease of native coronary artery without angina pectoris
CPT/HCPCS: 36415; 71045; 73501; 73502; 83735; 84100; 85025; 97535-GO-CO; J2405; J7040; Q0162